=== PATIENT | female | born 1960 | race Caucasian/White ===

== ENCOUNTER 2019-03-04 20:45 | Emergency (ER) | payer BC ==
[~2019-03-04] VITALS: Ht 160 cm; Wt 61.2 kg
[2019-03-04 20:50] VITALS: BP_SYST 116
[2019-03-04 23:34] LABS: BILIRUBIN,URINE NEGATIVE (NEGATIVE); BLOOD, URINE 1+ (NEGATIVE); COLOR,URINE YELLOW (YELLOW); GLUCOSE,URINE NEGATIVE (NEGATIVE); KETONES,URINE NEGATIVE (NEGATIVE); LEUKOCYTE ESTERASE ,URINE 2+ (NEGATIVE); NITRITE, URINE NEGATIVE (NEGATIVE); PROTEIN URINE NEGATIVE (NEGATIVE); UROBILINOGEN,URINE 0.2 (0.2-1.0)
[2019-03-04 23:38] LABS: CLARITY/URINE SLIGHTLY HAZY (CLEAR)
[2019-03-04 23:53] LABS: BACTERIA,URINE MODERATE /HPF (None Seen)
[2019-03-05] MEDS ORDERED: KETOROLAC TROMETHAMINE 60 MG/2 ML VIAL IM ONE (00:15)
[2019-03-05] MEDS ORDERED: CEPHALEXIN 500 MG CAPSULE PO ONE (00:15)
[2019-03-05 01:44] VITALS: BP_SYST 118
== END 2019-03-05 01:44 | disposition home or self-care (01) ==
LOC: SED 20:45
DX: N83.209 Unspecified ovarian cyst, unspecified side (principal); N39.0 Urinary tract infection, site not specified; F32.9 Major depressive disorder, single episode, unspecified
CPT/HCPCS: 74176; 81000; 87086; 96372; 99284; J1885; 87186-TC